=== PATIENT | female | born 2000 | race Caucasian/White ===

== ENCOUNTER 2024-08-08 06:00 | Emergency (ER) | payer OTHER ==
[~2024-08-08] VITALS: Ht 160 cm; Wt 86.2 kg
[2024-08-08 06:10] VITALS: TEMP 98.5
[2024-08-08] MEDS: LIDOCAINE VISC 2% SOLN 15 ML UDC PO ONE (06:42)
[2024-08-08] MEDS: BELLADONNA ALK/PHENOBARBITAL 5 ML UDC PO ONE (06:42)
[2024-08-08] MEDS: MAGNESIUM/ALUMINUM/SIMETHICONE 30 ML UDC PO ONE (06:42)
[2024-08-08 07:09] VITALS: PULSE 78; RESP 16; O2SAT 98
== END 2024-08-08 07:20 | disposition home or self-care (01) ==
LOC: ER 06:30
DX: R10.13 Epigastric pain (principal); K58.9 Irritable bowel syndrome, unspecified; K21.00 Gastro-esophageal reflux disease with esophagitis, without bleeding
CPT/HCPCS: 99282

== ENCOUNTER 2024-09-02 10:51 | Emergency (ER) | payer OTHER ==
[~2024-09-02] VITALS: Ht 160 cm; Wt 86.2 kg
[2024-09-02 11:05] VITALS: PULSE 83; RESP 12; TEMP 98.1; O2SAT 100
[2024-09-02] MEDS: DONNATAL/LIDOCAINE/MAALOX 30 ML SUSP PO ONE (11:48)
== END 2024-09-02 13:03 | disposition home or self-care (01) ==
LOC: ER 10:55
DX: R07.89 Other chest pain (principal); K21.00 Gastro-esophageal reflux disease with esophagitis, without bleeding; K29.70 Gastritis, unspecified, without bleeding; K58.9 Irritable bowel syndrome, unspecified; R94.31 Abnormal electrocardiogram [ECG] [EKG]
CPT/HCPCS: 93005; 99284

== ENCOUNTER 2024-11-23 10:27 | Emergency (ER) | payer SELFPAY | END 2024-11-23 10:35 | disposition short-term general hospital (02) | LOC: ER 10:28 | DX: R10.9 Unspecified abdominal pain (principal) ==